=== PATIENT | female | born 1995 | race Caucasian/White ===

== ENCOUNTER → 2016-08-18 | Outpatient (REF) | payer BC ==
[2016-08-18 11:19] LABS: MEAN CORPUSCULAR HEMOGLOBIN 29.8 pg (27.0-33.0); MEAN CORPUSCULAR HGB CONC 33.1 g/dl (32.0-36.5); MEAN CORPUSCULAR VOLUME 89.9 fl (80.0-96.0); RED CELL DISTRIBUTION WIDTH 12.7 % (11.5-14.5); WHITE BLOOD COUNT 5.3 K/mm3 (4.0-10.0)
== END ==
LOC: M SFHCCLAY 08:28
PROVIDERS: ATTEND Family Medicine
DX: D50.9 Iron deficiency anemia, unspecified (principal); E55.9 Vitamin D deficiency, unspecified

== ENCOUNTER → 2017-05-22 | Outpatient (CLI) | payer BC | LOC: M LAB 09:16 | PROVIDERS: ATTEND Nurse Practitioner Pediatrics | DX: E55.9 Vitamin D deficiency, unspecified (principal) ==

== ENCOUNTER → 2018-01-08 | Outpatient (CLI) | payer BC ==
[2018-01-08 09:42] LABS: BASO % 0.5 % (0.0-1.0); EOS # 0.2 10^3/uL (0.0-0.50); EOS % 4.1 % (0.0-3.0); HEMATOCRIT 38.3 % (36.0-47.0); HEMOGLOBIN 12.2 g/dl (12.0-15.5); IMMATURE GRANULOCYTE % 0.3 % (0-3.0); LYMPH # 1.2 10^3/uL (1.5-6.5); LYMPH % 33.7 % (24.0-44.0); MEAN CORPUSCULAR HEMOGLOBIN 29.3 pg (27.0-33.0); MEAN CORPUSCULAR HGB CONC 31.9 g/dl (32.0-36.5); MEAN CORPUSCULAR VOLUME 92.1 fl (80.0-96.0); MONO # 0.3 10^3/uL (0.0-0.8); NEUTROPHILS # 1.9 10^3/uL (1.8-7.7); NEUTROPHILS % 52.4 % (36.0-66.0); PLATELET COUNT, AUTOMATED 228 10^3/uL (150-450); RED BLOOD COUNT 4.16 10^6/uL (4.00-5.40); RED CELL DISTRIBUTION WIDTH 12.2 % (11.5-14.5); WHITE BLOOD COUNT 3.7 10^3/uL (4.0-10.0)
[2018-01-08 09:43] LABS: HEMATOCRIT 38.3 % (36.0-47.0)
[2018-01-08 10:13] LABS: ALBUMIN/GLOBULIN RATIO 1.05 (1.00-1.93); ALKALINE PHOSPHATASE 53 U/L (45-117); ALT/SGPT 20 U/L (12-78); ANION GAP 6 MEQ/L (8-16); AST/SGOT 16 U/L (7-37); BILIRUBIN,TOTAL 0.3 MG/DL (0.2-1.0); BLOOD UREA NITROGEN 14 MG/DL (7-18); CALCIUM LEVEL 8.7 MG/DL (8.5-10.1); CARBON DIOXIDE LEVEL 29 MEQ/L (21-32); CHLORIDE LEVEL 105 MEQ/L (98-107); CREATININE FOR GFR 0.78 MG/DL (0.55-1.30); GLOMERULAR FILTRATION RATE > 60.0 (>60); GLUCOSE, FASTING 116 MG/DL (70-100); SODIUM LEVEL 140 MEQ/L (136-145); TOTAL PROTEIN 7.8 GM/DL (6.4-8.2)
[2018-01-09 10:33] LABS: TOTAL 25(OH) VITAMIN D 61.8 NG/ML (30.0-100.0)
[2018-01-09 10:38] LABS: VITAMIN B12 LEVEL 453 PG/ML (247-911)
[2018-01-09 14:37] LABS: PRETREATED FOLATE FOR RBCFOL 9.1 NG/ML
[2018-01-11 00:07] LABS: MAGNESIUM RBC LEVEL 5.8 mg/dL (4.2-6.8)
[2018-01-12 14:14] LABS: VITAMIN B6,PYRIDOXAL PHOSPHATE 11.5 ug/L (2.0-32.8)
[2018-01-14 09:41] LABS: METHYLMALONIC ACID 207
[2018-01-14 09:44] LABS: SELENIUM LEVEL BLOOD 366 High
== END ==
LOC: M LAB 08:44
DX: R53.1 Weakness (principal)
CPT/HCPCS: 82607